=== PATIENT | female | born 1975 | race American Indian/Alaskan Native ===

== ENCOUNTER 2020-04-05 21:26 | Emergency (ER) | payer MEDICAID ==
[2020-04-05] MEDS ORDERED: Metoprolol Tartrate 50 MG Tab PO ONE (21:48)
[2020-04-05] MEDS ORDERED: Sodium Chloride 0.9% 10 ML Syringe FLUSH PRN (21:48)
--- NOTE | 2020-04-05 21:51 | EDM.PDOC ---
ED HPI GENERAL MEDICAL PROBLEM - General Chief Complaint: Chest Pain Stated Complaint: CHEST PAIN Time Seen by Provider: 04/05/20 21:40 Source of Information: Reports: Patient, Old Records, RN History Limitations: Reports: Other (incomplete medical records) - History of Present Illness INITIAL COMMENTS - FREE TEXT/NARRATIVE: 44 yo NA female from [place] is brought in from the local alf with chest pain all day. Denies any cardiac or HTN hx. Has been in alf for over 2 weeks. Sx's were mild this morning, worse tonight. Feels warm like she may be running a fever. Has urinary frequency. No cough or known exposures. Does have a pHx of UTI's. Onset: Today Onset Date: 04/05/20 Onset Time: 08:30 Duration: Hour(s):, Getting Worse Location: Reports: Chest Quality: Reports: Dull Severity: Moderate Improves with: Reports: None Worsens with: Reports: Other (time or deep breathing) Context: Reports: Other (See HPI) Associated Symptoms: Reports: Chest Pain (R half of chest worse), Fever/Chills (no chills), Shortness of Breath (minimal). Denies: Cough, Diaphoresis, Headaches, Nausea/Vomiting, Rash Treatments BRAZER RESISTANCE: Reports: Other (see below) (none) chest pressure Pain Score (Numeric/FACES): 8 - Related Data Allergies Allergy/AdvReac Type Severity Reaction Status Date / Time No Known Allergies Allergy Verified 04/05/20 22:20 Home Meds: Home Meds Buprenorphine HCl/Naloxone HCl [Suboxone 12 mg-3 mg Sl Film] 1 each SL BID 04/05/20 [History] ED ROS GENERAL - Review of Systems Review Of Systems: See Below Constitutional: Reports: Fever (not measured, felt warm), Malaise HEENT: Reports: No Symptoms Respiratory: Reports: Shortness of Breath (mild). Denies: Wheezing, Cough, Sputum, Hemoptysis Cardiovascular: Reports: Chest Pain (mild to moderate R sided). Denies: Dyspnea on Exertion, Orthopnea Endocrine: Reports: No Symptoms GI/Abdominal: Reports: No Symptoms : Reports: No Symptoms Musculoskeletal: Reports: No Symptoms Skin: Reports: No Symptoms Neurological: Reports: No Symptoms Psychiatric: Reports: No Symptoms ED EXAM, GENERAL - Physical Exam Exam: See Below Exam Limited By: No Limitations General Appearance: Alert, WD/WN, No Apparent Distress Eye Exam: Bilateral Eye: Normal Inspection Ears: Normal External Exam, Normal Canal, Hearing Grossly Normal, Normal TMs Ear Exam: Bilateral Ear: Auricle Normal, Canal Normal, TM normal Nose: Normal Inspection, No Blood Throat/Mouth: Normal Inspection, Normal Lips, Normal Oropharynx, Normal Voice, No Airway Compromise Head: Atraumatic, Normocephalic Neck: Normal Inspection Respiratory/Chest: No Respiratory Distress, Lungs Clear, Normal Breath Sounds, No Accessory Muscle Use. No: Chest Non-Tender (R sided chest wall tenderness) Cardiovascular: Regular Rate, Rhythm, No Edema, Tachycardia GI/Abdominal: Normal Bowel Sounds, Soft, Non-Tender, No Distention Back Exam: Normal Inspection. No: CVA Tenderness (R), CVA Tenderness (L) Extremities: Normal Inspection, Normal Range of Motion, Non-Tender, No Pedal Edema Neurological: Alert, Oriented, CN II-XII Intact, Normal Cognition, No Motor/Sensory Deficits Psychiatric: Normal Affect, Normal Mood Skin Exam: Warm, Dry, Intact, Normal Color, No Rash #1 Interpretation EKG Date: 04/05/20 Time: 21:40 Rhythm: NSR Rate (Beats/Min): 113 [place]: Normal P-Wave: Present QRS: Normal ST-T: Normal QT: Prolonged Comparison: NA - No Prior EKG (No ischemic changes.) Course - Vital Signs Last Recorded V/S: Last Vital Signs Temp Pulse 105 H 04/05/20 21:58 Resp BP 186/102 H 04/05/20 21:58 Pulse Ox - Orders/Labs/Meds Orders: Active Orders 24 hr Category Date Time Status Cardiac Monitoring [RC] .As Directed Care 04/05/20 21:28 Active EKG Documentation Completion [RC] ASDIRECTED Care 04/05/20 21:28 Active Sodium Chloride 0.9% [Saline Flush] Med 04/05/20 21:48 Active 10 ml FLUSH ASDIRECTED PRN Saline Lock Insert [OM.PC] Routine Oth 04/05/20 21:48 Ordered EKG 12 Lead [EK] Routine Ther 04/05/20 21:28 Ordered Medication Orders Sodium Chloride (Saline Flush) 10 ml FLUSH ASDIRECTED PRN PRN Reason: Keep Vein Open Labs: Laboratory Tests 04/05/20 04/05/2020 Range/Units 22:15 22:15 22:15 WBC 10.5 (4.5-11.0) K/uL RBC 4.50 (3.30-5.50) M/uL Hgb 12.4 (12.0-15.0) g/dL Hct 39.0 (36.0-48.0) % MCV 87 (80-98) fL MCH 28 (27-31) pg MCHC 32 (32-36) % Plt Count 249 (150-400) K/uL D-Dimer, Quantitative < 100 (0.0-400.0) ng/mL Sodium 140 (140-148) mmol/L Potassium 3.6 (3.6-5.2) mmol/L Chloride 102 (100-108) mmol/L Carbon Dioxide 30 (21-32) mmol/L Anion Gap 7.8 (5.0-14.0) mmol/L BUN 15 (7-18) mg/dL Creatinine 0.9 (0.6-1.0) mg/dL Est Cr Clr Drug Dosing TNP Estimated GFR (MDRD) > 60 (>60) Glucose 208 H (74-106) mg/dL Calcium 7.8 L (8.5-10.1) mg/dL Troponin I < 0.017 (0.000-0.056) ng/mL Urine Color (YELLOW) Urine Appearance (CLEAR) Urine pH (5.0-8.0) Ur Specific [place] (1.008-1.030) Urine Protein (NEGATIVE) mg/dL Urine Glucose (UA) (NEGATIVE) mg/dL Urine Ketones (NEGATIVE) mg/dL Urine Occult Blood (NEGATIVE) Urine Nitrite (NEGATIVE) Urine Bilirubin (NEGATIVE) Urine Urobilinogen (0.2-1.0) EU/dL Ur Leukocyte Esterase (NEGATIVE) Urine RBC (0-5) Urine WBC (0-5) Ur Epithelial Cells Amorphous Sediment Urine Bacteria Urine Mucus Urine Opiates Screen (NEGATIVE) Ur Oxycodone Screen (NEGATIVE) Urine Methadone Screen (NEGATIVE) Ur Propoxyphene Screen (NEGATIVE) Ur Barbiturates Screen (NEGATIVE) Ur Tricyclics Screen (NEGATIVE) Ur Phencyclidine Scrn (NEGATIVE) Ur Amphetamine Screen (NEGATIVE) U Methamphetamines Scrn (NEGATIVE) Urine MDMA Screen (NEGATIVE) U Benzodiazepines Scrn (NEGATIVE) U Cocaine Metab Screen (NEGATIVE) U Marijuana (THC) Screen (NEGATIVE) 04/05/20 04/05/20 Range/Units 22:24 22:25 WBC (4.5-11.0) K/uL RBC (3.30-5.50) M/uL Hgb (12.0-15.0) g/dL Hct (36.0-48.0) % MCV (80-98) fL MCH (27-31) pg MCHC (32-36) % Plt Count (150-400) K/uL D-Dimer, Quantitative (0.0-400.0) ng/mL Sodium (140-148) mmol/L Potassium (3.6-5.2) mmol/L Chloride (100-108) mmol/L Carbon Dioxide (21-32) mmol/L Anion Gap (5.0-14.0) mmol/L BUN (7-18) mg/dL Creatinine (0.6-1.0) mg/dL Est Cr Clr Drug Dosing Estimated GFR (MDRD) (>60) Glucose (74-106) mg/dL Calcium (8.5-10.1) mg/dL Troponin I (0.000-0.056) ng/mL Urine Color Yellow (YELLOW) Urine Appearance Clear (CLEAR) Urine pH 7.5 (5.0-8.0) Ur Specific [place] 1.025 (1.008-1.030) Urine Protein Negative (NEGATIVE) mg/dL Urine Glucose (UA) Negative (NEGATIVE) mg/dL Urine Ketones Negative (NEGATIVE) mg/dL Urine Occult Blood Negative (NEGATIVE) Urine Nitrite Negative (NEGATIVE) Urine Bilirubin Negative (NEGATIVE) Urine Urobilinogen 0.2 (0.2-1.0) EU/dL Ur Leukocyte Esterase Trace H (NEGATIVE) Urine RBC Not seen (0-5) Urine WBC 0-5 (0-5) Ur Epithelial Cells Not seen Amorphous Sediment Not seen Urine Bacteria Not seen Urine Mucus Not seen Urine Opiates Screen Negative (NEGATIVE) Ur Oxycodone Screen Negative (NEGATIVE) Urine Methadone Screen Negative (NEGATIVE) Ur Propoxyphene Screen Negative (NEGATIVE) Ur Barbiturates Screen Negative (NEGATIVE) Ur Tricyclics Screen Negative (NEGATIVE) Ur Phencyclidine Scrn Negative (NEGATIVE) Ur Amphetamine Screen Negative (NEGATIVE) U Methamphetamines Scrn Negative (NEGATIVE) Urine MDMA Screen Negative (NEGATIVE) U Benzodiazepines Scrn Negative (NEGATIVE) U Cocaine Metab Screen Negative (NEGATIVE) U Marijuana (THC) Screen Negative (NEGATIVE) Meds: Medications Generic Name Dose Route Start Last Admin Trade Name Freq PRN Reason Stop Dose Admin Sodium Chloride 10 ml 04/05/20 21:48 Saline Flush FLUSH ASDIRECTED PRN Keep Vein Open Discontinued Medications Generic Name Dose Route Start Last Admin Trade Name Freq PRN Reason Stop Dose Admin Ketorolac Tromethamine 30 mg 04/05/20 21:55 04/05/20 22:18 Toradol IVPUSH 04/05/20 21:56 30 mg ONETIME ONE Administration Metoprolol Tartrate 50 mg 04/05/20 21:48 04/05/20 21:58 Lopressor PO 04/05/20 21:49 50 mg ONETIME ONE Administration - Re-Assessments/Exams Free Text/Narrative Re-Assessment/Exam: 04/05/20 22:53 Feeling much better after tx, BP and HR down. Departure - Departure Time of Disposition: 23:00 Disposition: Home, Self-Care 01 Condition: Fair Clinical Impression: Elevated glucose level, Atypical chest pain HTN (hypertension) Qualifiers: Hypertension type: essential hypertension Qualified Code(s): I10 - Essential (primary) hypertension Instructions: Hypertension, Adult, [id number], Nonspecific Chest Pain, Adult, [id number], Hyperglycemia, [id number] Referrals: PCP,None [Primary Care Provider] - Forms: ED Department Discharge Additional Instructions: Avoid added salt or salty foods. Avoid foods made from white flour, white rice and sugary foods. Take Metoprolol succinate 100 mg every morning. Take metformin ER 1000 mg every 12 hrs. Take acetaminophen 1000 mg every 6 hrs or ibuprofen 600 mg every 6 hrs as needed for chest pain. Recheck as needed. I want you to see your provider when you get out of alf. Sepsis Event Note (ED) - Focused Exam Vital Signs: Vital Signs Pulse BP 04/05/20 21:58 105 H 186/102 H - My Orders Last 24 Hours: My Active Orders 04/05/20 21:28 Cardiac Monitoring [RC] .As Directed EKG Documentation Completion [RC] ASDIRECTED EKG 12 Lead [EK] Routine 04/05/20 21:48 Sodium Chloride 0.9% [Saline Flush] 10 ml FLUSH ASDIRECTED PRN Saline Lock Insert [OM.PC] Routine - Assessment/Plan Last 24 Hours: My Active Orders 04/05/20 21:28 Cardiac Monitoring [RC] .As Directed EKG Documentation Completion [RC] ASDIRECTED EKG 12 Lead [EK] Routine 04/05/20 21:48 Sodium Chloride 0.9% [Saline Flush] 10 ml FLUSH ASDIRECTED PRN Saline Lock Insert [OM.PC] Routine
[2020-04-05] MEDS ORDERED: Ketorolac 30 MG/ML SDV IVPUSH ONE (21:55)
== END 2020-04-05 23:33 | disposition home or self-care (01) ==
LOC: JP.ED 21:26
DX: R07.89 Other chest pain (principal); R73.09 Other abnormal glucose; I10 Essential (primary) hypertension
CPT/HCPCS: 36415; 80048; 80305; 81001; 84484; 85027; 85379; 87635; 93005; 96374; 99285; A9270; J1885; 93010; 99283; U0002